=== PATIENT | female | born 1975 | race Caucasian/White ===

== ENCOUNTER 2017-04-07 11:12 | Emergency (ER) | payer MEDICAID ==
[~2017-04-07] VITALS: Ht 152.4 cm; Wt 64.4 kg
[2017-04-07 13:18] VITALS: BP 138/64
== END 2017-04-07 13:18 | disposition home or self-care (01) ==
LOC: ED 11:12
DX: T81.31XA Disruption of external operation (surgical) wound, not elsewhere classified, initial encounter (principal)